=== PATIENT | male | born 1995 | race Caucasian/White ===

== ENCOUNTER 2016-07-06 01:33 | Emergency (ER) | payer SELFPAY ==
[~2016-07-06] VITALS: Ht 177.8 cm; Wt 99.7 kg
[2016-07-06 01:43] VITALS: Ht 177.8 cm; Wt 99.7 kg
[2016-07-06] MEDS ORDERED: IBUP-1542 PO (06:15)
[2016-07-06] MEDS ORDERED: PEN500 PO (06:15)
--- NOTE | 2016-07-06 09:48 | ERD ---
ER Documentation Chief Complaint Date/Time DATE: 07/06/16 TIME: 09:46 Chief Complaint anxiety HPI Patient is a 21-year-old male with depression and anxiety who presents with right-sided mouth and facial swelling. The symptoms have been going on for 1 day. He has not tried any medicines for pain as of yet. It is a constant pulsing type pain which he describes as 10 out of 10. He does not currently have a primary doctor. He also has URI symptoms which started today. He was brought in by ambulance. ROS All systems reviewed and are negative except as per history of present illness. Medications Home Meds Active Scripts Ibuprofen* (Motrin*) 600 Mg Tab, 600 MG PO Q6H Y for PAIN AND OR ELEVATED TEMP, #30 TAB Prov:TOM GODINEZ MD 07/06/16 Penicillin V Potassium* (Penicillin V K*) 500 Mg Tab, 500 MG PO QID for 7 Days, TAB Prov:TOM GODINEZ MD 07/06/16 Allergies Allergies: Coded Allergies: No Known Allergy (Unverified , 07/06/16) PMhx/Soc Medical and Surgical Hx: pt denies Medical Hx, pt denies Surgical Hx Hx Alcohol Use: Yes (occassional) Hx Substance Use: Yes (meth) Hx Tobacco Use: Yes Smoking Status: Current some day smoker FmHx Family History: No diabetes Physical Exam Vitals Vital Signs Date Time Temp Pulse Resp B/P Pulse Ox O2 Delivery O2 Flow Rate FiO2 07/06/16 01:43 97.8 62 20 111/70 99 Physical Exam Const: No acute distress Head: Atraumatic Eyes: Normal Conjunctiva ENT: Poor dentition with cracked and decayed right mandibular molar with right-sided facial swelling over the mandibular area Neck: Full range of motion..~ No meningismus. Resp: Clear to auscultation bilaterally Cardio: Regular rate and rhythm, no murmurs Abd: Soft, non tender, non distended. Normal bowel sounds Skin: No petechiae or rashes Back: No midline or flank tenderness Ext: No cyanosis, or edema Neur: Awake and alert Psych: Normal Mood and Affect Procedures/MDM Smoking Cessation Therapy: Pt. was lectured for greater than 3 minutes on the health risks of continued smoking and the benefits of cessation. Patient is a 21-year-old male with likely right mandibular dental abscess and facial cellulitis. The patient will be treated with Penicillin VK for 1 week. He will need to have his tooth pulled and I will give him information for the [facility] dentist. He can return for any worsening symptoms. I doubt systemic infection at this time. Departure Diagnosis: Primary Impression: Dental abscess Additional Impression: Anxiety attack Condition: Fair Patient Instructions: Dental Abscess, Panic Attack Referrals: [facility] ([facility] walk in clinic) Additional Instructions: SPECIALIST: YOU HAVE A MEDICAL CONDITION WHICH REQUIRES YOU TO SEE A SPECIALIST WITHIN THE NEXT 1-2 DAYS. PLEASE FOLLOW UP WITH YOUR PRIMARY PHYSICIAN FOR REFFERAL.IF YOU DO NOT HAVE A PRIMARY CARE PHYSICIAN AND/OR YOU CAN NOT AFFORD TO SEE A PHYSICIAN THE FOLLOWING RESOURCES HAVE BEEN SUPPLIED TO YOU. IT IS YOUR RESPONSIBILITY TO BE SEEN BY THE SPECIALIST TOM GODINEZ MD Jul 06, 2016 09:47
== END 2016-07-06 07:36 | disposition home or self-care (01) ==
LOC: EDBD 01:33 → FTE 01:33
DX: K04.7 Periapical abscess without sinus (principal); F17.210 Nicotine dependence, cigarettes, uncomplicated; F41.9 Anxiety disorder, unspecified
CPT/HCPCS: 99283